=== PATIENT | female | born 1955 | race Caucasian/White ===

== ENCOUNTER 2024-04-08 08:34 | Outpatient (CLI) | payer MEDICARE | END 2024-04-08 23:59 | disposition critical access hospital (66) | LOC: EMS 08:34 | DX: E11.65 Type 2 diabetes mellitus with hyperglycemia (principal); Z79.4 Long term (current) use of insulin | CPT/HCPCS: A0425; A0427 ==

== ENCOUNTER 2024-04-08 08:52 | Emergency (ER) | payer MEDICARE ==
[2024-04-08 09:31] LABS: BASOPHILS # (AUTO) 0.1 10^3/uL (0.0-0.1); BASOPHILS % (AUTO) 0.5 %; EOSINOPHILS % (AUTO) 0.3 %; HCT - HEMATOCRIT 49.1 % (37.0-47.0); LYMPHOCYTES # (AUTO) 2.3 10^3/uL (1.5-3.5); LYMPHOCYTES % (AUTO) 15.5 %; MEAN CORPUSCULAR HEMOGLOBIN 33.8 pg (27.0-31.0); MEAN CORPUSCULAR HGB CONC 32.6 g/dL (32.0-36.0); MEAN CORPUSCULAR VOLUME 103.8 fL (81.0-99.0); MEAN PLATELET VOLUME 9.1 fL (7.9-10.8); MONOCYTES # (AUTO) 0.6 10^3/uL (0.0-1.0); MONOCYTES % (AUTO) 4.3 %; NEUTROPHILS # (AUTO) 11.9 10^3/uL (1.5-6.6); NEUTROPHILS % (AUTO) 79.1 %; PLT - PLATELET COUNT 290 10^3/uL (130-450); RED BLOOD COUNT 4.73 10^6/uL (4.20-5.40); RED CELL DISTRIBUTION WIDTH 11.6 % (12.0-15.0)
--- NOTE | 2024-04-08 09:41 | ED Physician Documentation ---
History of Present Illness - Stated complaint Stated Complaint: HIGH BLOOD SUGAR - Chief complaint Chief Complaint: General - History obtained from History obtained from: Patient, EMS - History of Present Illness Timing: Today - Additonal information Additional information: Blood sugar is extremely high patient has had a cough for the past 3 weeks nonproductive of sputum without fever. She is brought to the hospital by ambulance from home place with the chief complaint of elevated blood sugar. She has been given some fluid en-route to the hospital. She has a history of dementia and her insulin is being given by the facility she is living in. She is a poor historian. Review of Systems Constitutional: denies: Fever Eyes: denies: Decreased vision, Photophobia Ears: denies: Loss of hearing, Ear pain Nose: reports: Congestion Throat: denies: Sore throat Cardiac: denies: Chest pain / pressure, Palpitations Respiratory: reports: Dyspnea, Cough, Wheezing GI: denies: Abdominal Pain, Nausea, Vomiting, Diarrhea : reports: Frequency. denies: Dysuria Musculoskeletal: denies: Neck pain, Back pain, Extremity pain Neurologic: reports: Generalized weakness. denies: Focal weakness, Numbness PD PAST MEDICAL HISTORY - Past Medical History Past Medical History: Yes Cardiovascular: Hypertension, High cholesterol Respiratory: Asthma Neuro: Alzhiemer's Endocrine/Autoimmune: Other : Other HEENT: Other Psych: Depression, Bipolar disorder - Present Medications Home Medications: Ambulatory Orders Medication Instructions Recorded Confirmed Azithromycin [Zithromax] 250 mg PO DAILY #6 tablet 04/08/24 Benzonatate [Tessalon] 100 - 200 mg PO TID PRN #30 cap 04/08/24 - Allergies Allergies/Adverse Reactions: Allergies Allergy/AdvReac Type Severity Reaction Status Date / Time ciprofloxacin [From Cipro] Allergy Unknown Verified 04/08/24 09:09 clarithromycin [From Biaxin] Allergy Unknown Verified 04/08/24 09:09 lisinopril Allergy Unknown Verified 04/08/24 09:09 Sulfa (Sulfonamide Allergy Unknown Verified 04/08/24 09:08 Antibiotics) - Social History Does the pt smoke?: No Smoking Status: Never smoker Does the pt drink ETOH?: No Does the pt have substance abuse?: No - Immunizations Immunizations are current?: Yes - POLST Patient has POLST: No PD ED PE NORMAL - Vitals Vital signs reviewed: Yes (normal ) - General General: No acute distress, Well developed/nourished - HEENT HEENT: Atraumatic, PERRL, EOMI, Other (dry mucous membranes) - Neck Neck: Supple, no meningeal sign, No bony TTP - Cardiac Cardiac: RRR, No murmur - Respiratory Respiratory: No respiratory distress, Other (scattered wheezes diminished breath sounds in right base ) - Abdomen Abdomen: Soft, Non tender - Back Back: No CVA TTP, No spinal TTP - Derm Derm: Normal color, Warm and dry, No rash - Extremities Extremities: No deformity, No edema - 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, No motor deficit, No sensory deficit, Normal speech Eye Opening: Spontaneous Motor: Obeys Commands Verbal: Confused GCS Score: 14 - Psych Psych: Normal mood, Normal affect Results - Vitals Vitals: Vital Signs - 24 hr 04/08/24 04/08/24 08:59 11:34 Temperature 36.4 C L Heart Rate 66 66 Respiratory 20 20 Rate Blood Pressure 130/64 124/68 O2 Saturation 96 95 Oxygen O2 Source Room air - Labs Labs: Laboratory Tests 04/08/24 04/08/24 04/08/24 08:47 09:26 09:57 WBC 15.0 H RBC 4.73 Hgb 16.0 Hct 49.1 H MCV 103.8 H MCH 33.8 H MCHC 32.6 RDW 11.6 L Plt Count 290 MPV 9.1 Neut # (Auto) 11.9 H Lymph # (Auto) 2.3 [place] # (Auto) 0.6 Eos # (Auto) 0.0 Baso # (Auto) 0.1 Absolute Nucleated RBC 0.00 Nucleated RBC % 0.0 VBG pH VBG pCO2 VBG pO2 VBG HCO3 VBG Total CO2 VBG O2 Saturation VBG Base Excess Sodium 135 Potassium 4.1 Chloride 102 Carbon Dioxide 16 L Anion Gap 17.0 H BUN 12 Creatinine 0.8 Estimated GFR (MDRD) 72 L Glucose 412 H Calcium 9.3 Total Bilirubin 0.5 AST 9 L ALT 11 Alkaline Phosphatase 97 Total Protein 6.9 Albumin 4.1 Globulin 2.8 Albumin/Globulin Ratio 1.5 Lipase < 10 L Urine Color Urine Clarity Urine pH Ur Specific [place] Urine Protein Urine Glucose (UA) Urine Ketones Urine Occult Blood Urine Nitrite Urine Bilirubin Urine Urobilinogen Ur Leukocyte Esterase Ur Microscopic Review Urine Culture Comments Nasal Adenovirus (PCR) NOT DETECTED Nasal B. parapertussis DNA (PCR) NOT DETECTED Nasal Coronavir 229E PCR NOT DETECTED Nasal Coronavir HKU1 PCR NOT DETECTED Nasal Coronavir NL63 PCR NOT DETECTED Nasal Coronavir OC43 PCR NOT DETECTED Nasal Enterovir/Rhinovir PCR DETECTED A Nasal Influenza B PCR NOT DETECTED Nasal Influenza A PCR NOT DETECTED Nasal Parainfluen 1 PCR NOT DETECTED Nasal Parainfluen 2 PCR NOT DETECTED Nasal Parainfluen 3 PCR NOT DETECTED Nasal Parainfluen 4 PCR NOT DETECTED Nasal RSV (PCR) NOT DETECTED Nasal B.pertussis DNA PCR NOT DETECTED Nasal C.pneumoniae (PCR) NOT DETECTED [place] Human Metapneumo PCR NOT DETECTED Nasal M.pneumoniae (PCR) NOT DETECTED Nasal SARS-CoV-2 (PCR) NOT DETECTED Serum Ketones 04/08/24 04/08/24 04/08/24 10:36 10:36 12:35 WBC RBC Hgb Hct MCV MCH MCHC RDW Plt Count MPV Neut # (Auto) Lymph # (Auto) [place] # (Auto) Eos # (Auto) Baso # (Auto) Absolute Nucleated RBC Nucleated RBC % VBG pH 7.323 VBG pCO2 33.0 L VBG pO2 69.8 H VBG HCO3 16.7 L VBG Total CO2 17.7 L VBG O2 Saturation 94.0 H VBG Base Excess -8.0 L Sodium Potassium Chloride Carbon Dioxide Anion Gap BUN Creatinine Estimated GFR (MDRD) Glucose Calcium Total Bilirubin AST ALT Alkaline Phosphatase Total Protein Albumin Globulin Albumin/Globulin Ratio Lipase Urine Color YELLOW Urine Clarity CLEAR Urine pH 6.0 Ur Specific [place] 1.020 Urine Protein NEGATIVE Urine Glucose (UA) >=1000 H Urine Ketones >=80 H Urine Occult Blood TRACE-INTA Urine Nitrite NEGATIVE Urine Bilirubin NEGATIVE Urine Urobilinogen 0.2 (NORMAL) Ur Leukocyte Esterase NEGATIVE Ur Microscopic Review NOT INDICATED Urine Culture Comments NOT INDICATED Nasal Adenovirus (PCR) Nasal B. parapertussis DNA (PCR) Nasal Coronavir 229E PCR Nasal Coronavir HKU1 PCR Nasal Coronavir NL63 PCR Nasal Coronavir OC43 PCR Nasal Enterovir/Rhinovir PCR Nasal Influenza B PCR Nasal Influenza A PCR Nasal Parainfluen 1 PCR Nasal Parainfluen 2 PCR Nasal Parainfluen 3 PCR Nasal Parainfluen 4 PCR Nasal RSV (PCR) Nasal B.pertussis DNA PCR Nasal C.pneumoniae (PCR) Jeremy Human Metapneumo PCR Nasal M.pneumoniae (PCR) Nasal SARS-CoV-2 (PCR) Serum Ketones SMALL H - Rads (name of study) chest Relevant Findings:: Prelim report reviewed (Impression: No acute cardiopulmonary process.), EMP independent interpretation of test, See rad report Procedures - IVC sono (time) 0934 Bedside IVC sono: IVC measures (cm) (0.58), Profound dehydration (est 3 liter deficit) PD Medical Decision Making - ED course Complexity details: reviewed results, re-evaluated patient, considered diffe rential, d/w patient Reviewed Lab Results: We reviewed a complete blood count showing an elevated white blood cell count of 15,000 hemoglobin was normal at 16 hematocrit elevated at 49.1 platelets are normal at 290,000 the MCV is elevated at 103.8. These laboratory values have no comparisons and the elevation in hematocrit and upper level of normal hemoglobin are concerning for hemoconcentration a blood gas shows a venous pH of 7.323 chemistries show normal electrolytes normal kidney function glucose is markedly elevated at 412 liver function is normal lipase is normal urinalysis shows glucose and ketones with a specific gravity 1.020 enterovirus is detected in the nasal smear and there are small serum ketones. I interpret these laboratory values to indicate the patient has a significant volume deficit and minimal evidence of acidosis. ED course: Isatu Valdivia presented to the emergency department with markedly elevated blood sugar with a 3-week history of cough. She is treated in the emerged part with intravenous saline with improvement in her sugar she is given benzoate for cough suppression. She received a total of 2 L of saline with marked improvement. Glucose was 254 at discharge. She does have insulin at home. Departure - Departure Disposition: 01 Home, Self Care Clinical Impression: Blood glucose abnormal, Dehydration, Bronchitis Instructions: ED Hyperglycemia Diabetic, ED Dehydration Follow-Up: Donte Preston, CANDI, [employer] FORWARDER, [employer] PROFESSOR [Primary Care Provider] - Prescriptions: Benzonatate [Tessalon] 100 - 200 mg PO TID PRN #30 cap PRN Reason: Cough Azithromycin [Zithromax] 250 mg PO DAILY #6 tablet Comments: Isatu, today your blood sugar was markedly elevated and you were subsequently significantly dehydrated. You have had an illness ongoing for about 3 weeks with a persistent cough and there is no evidence of a pneumonia on your chest x- ray. At this point we will offer empiric antibiotic therapy for the bronchitis and we have provided a prescription for azithromycin as well as some cough suppressant in the form of benzoate. Continue your current diabetic regimen. Forms: PCP List Discharge Date/Time: 04/08/24 13:37
[2024-04-08] MEDS: SODIUM CHLORIDE 0.9% 1,000 ML IV STA ×2 (09:49→10:56)
[2024-04-08 10:16] LABS: ALBUMIN 4.1 g/dL (3.2-5.5); ALBUMIN/GLOBULIN RATIO 1.5 (1.0-2.2); ALKALINE PHOSPHATASE 97 IU/L (42-121); ALT ALANINE AMINOTRANSFERASE 11 IU/L (10-60); AST ASPARTATE AMINOTRANSFERASE 9 IU/L (10-42); BILIRUBIN,TOTAL 0.5 mg/dL (0.2-1.0); BUN - BLOOD UREA NITROGEN 12 mg/dL (6-20); CALCIUM 9.3 mg/dL (8.5-10.3); CARBON DIOXIDE - CO2 16 mmol/L (21-32); CHLORIDE 102 mmol/L (101-111); CREATININE 0.8 mg/dL (0.6-1.3); GFR - MDRD 72 (>89); GLUCOSE 412 mg/dL (74-104); LIPASE < 10 U/L (11-82); POTASSIUM 4.1 mmol/L (3.5-4.5); SODIUM 135 mmol/L (135-145); TOTAL PROTEIN 6.9 g/dL (6.4-8.9)
--- NOTE | 2024-04-08 10:33 | XRAY Report ---
PROCEDURE: Chest 1V INDICATIONS: persistent cough TECHNIQUE: One view of the chest was acquired. COMPARISON: None. FINDINGS: Surgical changes and devices: Pacemaker. Lungs and pleura: No pleural effusions or pneumothorax. Lungs are clear. Mediastinum: Mediastinal contours appear normal. Heart size is normal. Bones and chest wall: No suspicious bony lesions. Overlying soft tissues appear unremarkable. IMPRESSION: No acute cardiopulmonary process. Reviewed by: Nicho Sanchez MD on 04/08/2024 10:32 AM PDT Approved by: Nicho Sanchez MD on 04/08/2024 10:32 AM PDT Station ID: [id number]
[2024-04-08 10:45] LABS: VBG HCO3 16.7 mmol/L (23-28); VBG PH 7.323 (7.31-7.41); VBG PO2 69.8 mmHg (25-47); VBG TOTAL CO2 17.7 mmol/L (24-29)
[2024-04-08] MEDS: BENZONATATE 100 MG CAPSULE PO STA (10:52)
[2024-04-08] MEDS: INSULIN REGULAR, HUMAN 300 UNIT/3 ML PEN IVP STA (11:03)
[2024-04-08 11:40] VITALS: BP 124/68; O2SAT 95
[2024-04-08 12:01] LABS: B. PARAPERTUSSIS- RESP PCR PAN NOT DETECTED; B. PERTUSSIS- RESP PCR PANEL NOT DETECTED; C. PNEUMONIAE- RESP PCR PANEL NOT DETECTED; CORONAVIRUS 229E-RESP PCR NOT DETECTED; CORONAVIRUS HKU1-RESP PCR NOT DETECTED; CORONAVIRUS NL63-RESP PCR NOT DETECTED; CORONAVIRUS OC43-RESP PCR NOT DETECTED; HUMAN METAPNEUMOVIRUS NOT DETECTED; INFLUENZA A- RESP PCR PANEL NOT DETECTED; INFLUENZA B - RESP PCR PANEL NOT DETECTED; M. PNEUMONIAE- RESP PCR PANEL NOT DETECTED; PARAINFLUENZA VIRUS 1 NOT DETECTED; PARAINFLUENZA VIRUS 2 NOT DETECTED; PARAINFLUENZA VIRUS 3 NOT DETECTED; PARAINFLUENZA VIRUS 4 NOT DETECTED; RHINOVIRUS/ENTEROVIRUS DETECTED; RSV- RESP PCR PANEL NOT DETECTED; SARS-CoV-2 -RESP PCR PANEL NOT DETECTED
[2024-04-08 12:43] LABS: BILIRUBIN,URINE NEGATIVE (NEGATIVE); GLUCOSE, URINE (UA) >=1000 mg/dL (NEGATIVE); KETONES,URINE (UA) >=80 mg/dL (NEGATIVE); LEUKOCYTE ESTERASE, URINE NEGATIVE (NEGATIVE); NITRITE,URINE NEGATIVE (NEGATIVE); OCCULT BLOOD,URINE TRACE-INTA (NEGATIVE); PROTEIN,URINE NEGATIVE (NEGATIVE); UROBILINOGEN,URINE 0.2 (NORMAL) E.U./dL (NORMAL)
[2024-04-08 12:47] LABS: CLARITY,URINE CLEAR (CLEAR)
== END 2024-04-08 13:37 | disposition home or self-care (01) ==
LOC: ED 08:52
DX: R73.9 Hyperglycemia, unspecified (principal); J40 Bronchitis, not specified as acute or chronic; E86.0 Dehydration; I10 Essential (primary) hypertension; E78.00 Pure hypercholesterolemia, unspecified; G30.9 Alzheimer's disease, unspecified; F02.80 Dementia in other diseases classified elsewhere, unspecified severity, without behavioral disturbance, psychotic disturbance, mood disturbance, and anxiety
CPT/HCPCS: 36415; 71045; 80053; 81003; 82009; 82803; 83690; 85025; 87633; 96360; 96361; 99284; A9270; 81001; 87086

== ENCOUNTER 2024-04-08 13:40 | Outpatient (CLI) | payer MEDICARE | END 2024-04-08 23:59 | disposition home or self-care (01) | LOC: EMS 13:40 | PROVIDERS: ATTEND Emergency Medicine | DX: E11.65 Type 2 diabetes mellitus with hyperglycemia (principal); J40 Bronchitis, not specified as acute or chronic | CPT/HCPCS: A0425; A0428 ==

== ENCOUNTER 2024-04-09 06:48 | Outpatient (CLI) | payer MEDICARE, MEDICAID | END 2024-04-09 23:59 | disposition critical access hospital (66) | LOC: EMS 06:48 | DX: E11.65 Type 2 diabetes mellitus with hyperglycemia (principal); R11.0 Nausea; R53.81 Other malaise; Z79.4 Long term (current) use of insulin | CPT/HCPCS: A0425; A0429 ==

== ENCOUNTER 2024-04-09 07:05 | Inpatient (IN) | payer MEDICARE, MEDICAID ==
--- NOTE | 2024-04-09 08:19 | XRAY Report ---
PROCEDURE: Chest 1V INDICATIONS: cough for couple days, elevated sugar TECHNIQUE: One view of the chest was acquired. COMPARISON: 04/08/2024. FINDINGS: Surgical changes and devices: Left chest wall pacemaker leads are in the region of right atrium and right ventricle. Lungs and pleura: No pleural effusions or pneumothorax. Lungs are clear. Mediastinum: Mediastinal contours appear normal. Heart size is normal. Bones and chest wall: No suspicious bony lesions. Overlying soft tissues appear unremarkable. IMPRESSION: No acute cardiopulmonary process. Reviewed by: Aldo Chavez MD on 04/09/2024 8:17 AM PDT Approved by: Aldo Chavez MD on 04/09/2024 8:17 AM PDT Station ID: [id number]
[2024-04-09] MEDS: SODIUM CHLORIDE 0.9% 1,000 ML IV STA ×2 (08:21→09:54)
[2024-04-09 08:26] LABS: BASOPHILS # (AUTO) 0.1 10^3/uL (0.0-0.1); BASOPHILS % (AUTO) 0.4 %; EOSINOPHILS % (AUTO) 0.1 %; HCT - HEMATOCRIT 48.2 % (37.0-47.0); HGB - HEMOGLOBIN 15.4 g/dL (12.0-16.0); LYMPHOCYTES % (AUTO) 14.8 %; MEAN CORPUSCULAR HEMOGLOBIN 33.7 pg (27.0-31.0); MEAN CORPUSCULAR VOLUME 105.5 fL (81.0-99.0); MEAN PLATELET VOLUME 9.2 fL (7.9-10.8); MONOCYTES # (AUTO) 0.7 10^3/uL (0.0-1.0); MONOCYTES % (AUTO) 3.7 %; NEUTROPHILS # (AUTO) 16.1 10^3/uL (1.5-6.6); NEUTROPHILS % (AUTO) 80.2 %; PLT - PLATELET COUNT 326 10^3/uL (130-450); RED BLOOD COUNT 4.57 10^6/uL (4.20-5.40); RED CELL DISTRIBUTION WIDTH 11.7 % (12.0-15.0); WHITE BLOOD COUNT 20.1 x10^3/uL (4.8-10.8)
[2024-04-09 08:34] LABS: MAGNESIUM 1.7 mg/dL (1.7-2.3)
[2024-04-09 08:35] LABS: BILIRUBIN,TOTAL 0.4 mg/dL (0.2-1.0); CALCIUM 9.5 mg/dL (8.5-10.3); CHLORIDE 97 mmol/L (101-111); POTASSIUM 4.7 mmol/L (3.5-4.5); SODIUM 131 mmol/L (135-145)
[2024-04-09 08:40] LABS: BILIRUBIN,URINE NEGATIVE (NEGATIVE); GLUCOSE, URINE (UA) >=1000 mg/dL (NEGATIVE); KETONES,URINE (UA) >=80 mg/dL (NEGATIVE); LEUKOCYTE ESTERASE, URINE NEGATIVE (NEGATIVE); NITRITE,URINE NEGATIVE (NEGATIVE); OCCULT BLOOD,URINE SMALL (NEGATIVE); PH,URINE 5.5 PH (5.0-7.5); PROTEIN,URINE NEGATIVE (NEGATIVE); UROBILINOGEN,URINE 0.2 (NORMAL) E.U./dL (NORMAL)
[2024-04-09 08:40] LABS: ETOH - ETHANOL < 10.0 mg/dL
[2024-04-09 08:41] LABS: ALBUMIN/GLOBULIN RATIO 1.3 (1.0-2.2); ALKALINE PHOSPHATASE 96 IU/L (42-121); ALT ALANINE AMINOTRANSFERASE 13 IU/L (10-60); AST ASPARTATE AMINOTRANSFERASE 14 IU/L (10-42); BUN - BLOOD UREA NITROGEN 13 mg/dL (6-20); CARBON DIOXIDE - CO2 7 mmol/L (21-32); CREATININE 0.9 mg/dL (0.6-1.3); GFR - MDRD 63 (>89); GLUCOSE 539 mg/dL (74-104); LIPASE < 10 U/L (11-82); TOTAL PROTEIN 7.1 g/dL (6.4-8.9)
[2024-04-09 08:46] LABS: VBG PCO2 28.9 mmHg (41-51)
[2024-04-09 08:47] LABS: VBG BASE EXCESS -21.1 mmol/L (-2 - +2); VBG OXYGEN SATURATION 77.7 % (60-80); VBG PO2 48.9 mmHg (25-47); VBG TOTAL CO2 8.9 mmol/L (24-29)
[2024-04-09 08:48] LABS: VBG PH 7.06 (7.31-7.41)
[2024-04-09 09:04] LABS: SLIDE REVIEW? Indicated
--- NOTE | 2024-04-09 09:05 | ED Physician Documentation ---
PD HPI NVD - Stated complaint Stated Complaint: HIGH BLOOD SUGAR - Chief complaint Chief Complaint: General - History obtained from History obtained from: Patient, EMS, Caregiver - History of Present Illness Timing - onset: Yesterday (noted elevated blood sugar 2 days. Mild cough, URI symptoms. NV today. some abd cramping.) Timing - duration: Days (2) Timing - details: Gradual onset, Still present Associated symptoms: Abdominal pain (cramping upper abdomen.), Loss of appetite. No: Fever, Hematemesis, Near syncope / syncope Contributing factors: Diabetes. No: Sick contact, Bad food Similar symptoms before: Has not had sx before Recently seen: Not recently seen Review of Systems Constitutional: denies: Fever, Chills Throat: denies: Sore throat Cardiac: denies: Chest pain / pressure Respiratory: denies: Cough GI: reports: Abdominal Pain, Nausea, Vomiting. denies: Constipation Neurologic: reports: Generalized weakness. denies: Near syncope PD PAST MEDICAL HISTORY - Past Medical History Past Medical History: Yes Cardiovascular: Hypertension, High cholesterol Respiratory: Asthma Neuro: Alzhiemer's (early onset) Endocrine/Autoimmune: Other : Other HEENT: Other Psych: Depression, Bipolar disorder - Past Surgical History Past Surgical History: No - Present Medications Home Medications: Ambulatory Orders Medication Instructions Recorded Confirmed Azithromycin [Zithromax] 250 mg PO DAILY #6 tablet 04/08/24 04/09/24 Benzonatate [Tessalon] 100 - 200 mg PO TID PRN #30 cap 04/08/24 04/09/24 Aspirin [[place]] 81 mg PO DAILY 04/09/24 04/09/24 Buspirone HCl 10 mg PO DAILY 04/09/24 04/09/24 DULoxetine [Cymbalta] 60 mg PO DAILY 04/09/24 04/09/24 Donepezil [Aricept] 5 mg PO DAILY 04/09/24 04/09/24 Insulin Glargine [Lantus Solostar] See Rx Instructions .ROUTE .COMPLEX 04/09/24 04/09/24 Lactulose 20 gm PO DAILY PM 04/09/24 04/09/24 Levetiracetam [Keppra] 500 mg PO BID 04/09/24 04/09/24 Melatonin/Pyridoxine [Melatonin 5 1 each PO DAILY 04/09/24 04/09/24 mg Tablet] Metoprolol Succinate [Toprol Xl] 50 mg PO DAILY 04/09/24 04/09/24 Mirabegron [Myrbetriq] 50 mg PO DAILY 04/09/24 04/09/24 Mv-Min/Folic/K1/Lycopen/Lutein 1 tab PO DAILY 04/09/24 04/09/24 [Centrum Silver Men Tablet] Pravastatin [Pravachol] 20 mg PO DAILY 04/09/24 04/09/24 Primidone 150 mg PO DAILY 04/09/24 04/09/24 Sacubitril/Valsartan [Entresto 24 1 each PO DAILY 04/09/24 04/09/24 mg-26 mg Tablet] Spironolactone [Aldactone] 25 mg PO DAILY 04/09/24 04/09/24 Venlafaxine ER [Effexor ER] 150 mg PO DAILY 04/09/24 04/09/24 oxyBUTYnin chloride [Oxybutynin 5 mg PO BID 04/09/24 04/09/24 Chloride] - Allergies Allergies/Adverse Reactions: Allergies Allergy/AdvReac Type Severity Reaction Status Date / Time ciprofloxacin [From Cipro] Allergy Unknown Verified 04/09/24 07:19 clarithromycin [From Biaxin] Allergy Unknown Verified 04/09/24 07:19 lisinopril Allergy Unknown Verified 04/09/24 07:19 Sulfa (Sulfonamide Allergy Unknown Verified 04/09/24 07:19 Antibiotics) - Social History Does the pt smoke?: No Smoking Status: Never smoker Does the pt drink ETOH?: No Does the pt have substance abuse?: No - Immunizations Immunizations are current?: Yes - POLST Patient has POLST: No PD ED PE NORMAL - Vitals Vital signs reviewed: Yes - General General: Well developed/nourished, Other (appears ill with holding emesis bag. ). No: Alert and oriented X 3 (person and place but not time, c/w her dementia. ) - Neck Neck: Supple, no meningeal sign, No adenopathy - Cardiac Cardiac: RRR, No murmur - Respiratory Respiratory: Clear bilaterally - Abdomen Abdomen: Normal bowel sounds, Soft, Non distended, Other (tender epigastric area with local guarding but no rebound nor percussion tenderness. Not particularly tender RUQ. ) - Derm Derm: Normal color, Warm and dry Results - Vitals Vitals: Vital Signs - 24 hr 04/09/24 04/09/24 04/09/24 07:13 08:33 10:00 Temperature 35.7 C L Heart Rate 80 80 90 Respiratory 20 20 Rate Blood Pressure 147/59 H 136/75 H O2 Saturation 98 98 100 Oxygen O2 Source Room air - Labs Labs: Laboratory Tests 04/09/24 04/09/24 04/09/24 08:15 08:15 08:15 WBC 20.1 H RBC 4.57 Hgb 15.4 Hct 48.2 H MCV 105.5 H MCH 33.7 H MCHC 32.0 RDW 11.7 L Plt Count 326 MPV 9.2 Neut # (Auto) 16.1 H Lymph # (Auto) 3.0 [place] # (Auto) 0.7 Eos # (Auto) 0.0 Baso # (Auto) 0.1 Absolute Nucleated RBC 0.00 Nucleated RBC % 0.0 Manual Slide Review Indicated RBC Morph Micro Appear 1+ ANISOCYTOSIS VBG pH 7.060 L* VBG pCO2 28.9 L VBG pO2 48.9 H VBG HCO3 8.0 L VBG Total CO2 8.9 L VBG O2 Saturation 77.7 VBG Base Excess -21.1 L Sodium 131 L Potassium 4.7 H Chloride 97 L Carbon Dioxide 7 L* Anion Gap 27.0 H BUN 13 Creatinine 0.9 Estimated GFR (MDRD) 63 L Glucose 539 H* POC Whole Bld Glucose Estimat Average Glucose Hemoglobin A1c % Calcium 9.5 Magnesium 1.7 Total Bilirubin 0.4 AST 14 ALT 13 Alkaline Phosphatase 96 Total Protein 7.1 Albumin 4.0 Globulin 3.1 Albumin/Globulin Ratio 1.3 Lipase < 10 L Urine Color Urine Clarity Urine pH Ur Specific [place] Urine Protein Urine Glucose (UA) Urine Ketones Urine Occult Blood Urine Nitrite Urine Bilirubin Urine Urobilinogen Ur Leukocyte Esterase Urine RBC Urine WBC Ur Squamous Epith Cells Urine Bacteria Ur Microscopic Review Urine Culture Comments Nasal Adenovirus (PCR) Nasal B. parapertussis DNA (PCR) Nasal Coronavir 229E PCR Nasal Coronavir HKU1 PCR Nasal Coronavir NL63 PCR Nasal Coronavir OC43 PCR Nasal Enterovir/Rhinovir PCR Nasal Influenza B PCR Nasal Influenza A PCR Nasal Parainfluen 1 PCR Nasal Parainfluen 2 PCR Nasal Parainfluen 3 PCR Nasal Parainfluen 4 PCR Nasal RSV (PCR) Nasal B.pertussis DNA PCR Nasal C.pneumoniae (PCR) [place] Human Metapneumo PCR Nasal M.pneumoniae (PCR) Nasal SARS-CoV-2 (PCR) Ethyl Alcohol < 10.0 Serum Ketones MODERATE H 04/09/24 04/09/24 04/09/24 08:20 08:20 08:45 WBC RBC Hgb Hct MCV MCH MCHC RDW Plt Count MPV Neut # (Auto) Lymph # (Auto) [place] # (Auto) Eos # (Auto) Baso # (Auto) Absolute Nucleated RBC Nucleated RBC % Manual Slide Review RBC Morph Micro Appear VBG pH VBG pCO2 VBG pO2 VBG HCO3 VBG Total CO2 VBG O2 Saturation VBG Base Excess Sodium Potassium Chloride Carbon Dioxide Anion Gap BUN Creatinine Estimated GFR (MDRD) Glucose POC Whole Bld Glucose Estimat Average Glucose 246 H Hemoglobin A1c % 10.2 H Calcium Magnesium Total Bilirubin AST ALT Alkaline Phosphatase Total Protein Albumin Globulin Albumin/Globulin Ratio Lipase Urine Color YELLOW Urine Clarity CLEAR Urine pH 5.5 Ur Specific [place] 1.025 Urine Protein NEGATIVE Urine Glucose (UA) >=1000 H Urine Ketones >=80 H Urine Occult Blood SMALL H Urine Nitrite NEGATIVE Urine Bilirubin NEGATIVE Urine Urobilinogen 0.2 (NORMAL) Ur Leukocyte Esterase NEGATIVE Urine RBC 0-5 Urine WBC 0-3 Ur Squamous Epith Cells RARE Squamous Urine Bacteria Rare Ur Microscopic Review INDICATED Urine Culture Comments NOT INDICATED Nasal Adenovirus (PCR) NOT DETECTED Nasal B. parapertussis DNA (PCR) NOT DETECTED Nasal Coronavir 229E PCR NOT DETECTED Nasal Coronavir HKU1 PCR NOT DETECTED Nasal Coronavir NL63 PCR NOT DETECTED Nasal Coronavir OC43 PCR NOT DETECTED Nasal Enterovir/Rhinovir PCR DETECTED A Nasal Influenza B PCR NOT DETECTED Nasal Influenza A PCR NOT DETECTED Nasal Parainfluen 1 PCR NOT DETECTED Nasal Parainfluen 2 PCR NOT DETECTED Nasal Parainfluen 3 PCR NOT DETECTED Nasal Parainfluen 4 PCR NOT DETECTED Nasal RSV (PCR) NOT DETECTED Nasal B.pertussis DNA PCR NOT DETECTED Nasal C.pneumoniae (PCR) NOT DETECTED [place] Human Metapneumo PCR NOT DETECTED Nasal M.pneumoniae (PCR) NOT DETECTED Nasal SARS-CoV-2 (PCR) NOT DETECTED Ethyl Alcohol Serum Ketones 04/09/24 04/09/24 10:17 11:29 WBC RBC Hgb Hct MCV MCH MCHC RDW Plt Count MPV Neut # (Auto) Lymph # (Auto) [place] # (Auto) Eos # (Auto) Baso # (Auto) Absolute Nucleated RBC Nucleated RBC % Manual Slide Review RBC Morph Micro Appear VBG pH VBG pCO2 VBG pO2 VBG HCO3 VBG Total CO2 VBG O2 Saturation VBG Base Excess Sodium Potassium Chloride Carbon Dioxide Anion Gap BUN Creatinine Estimated GFR (MDRD) Glucose POC Whole Bld Glucose 508 H* 432 H Estimat Average Glucose Hemoglobin A1c % Calcium Magnesium Total Bilirubin AST ALT Alkaline Phosphatase Total Protein Albumin Globulin Albumin/Globulin Ratio Lipase Urine Color Urine Clarity Urine pH Ur Specific [place] Urine Protein Urine Glucose (UA) Urine Ketones Urine Occult Blood Urine Nitrite Urine Bilirubin Urine Urobilinogen Ur Leukocyte Esterase Urine RBC Urine WBC Ur Squamous Epith Cells Urine Bacteria Ur Microscopic Review Urine Culture Comments Nasal Adenovirus (PCR) Nasal B. parapertussis DNA (PCR) Nasal Coronavir 229E PCR Nasal Coronavir HKU1 PCR Nasal Coronavir NL63 PCR Nasal Coronavir OC43 PCR Nasal Enterovir/Rhinovir PCR Nasal Influenza B PCR Nasal Influenza A PCR Nasal Parainfluen 1 PCR Nasal Parainfluen 2 PCR Nasal Parainfluen 3 PCR Nasal Parainfluen 4 PCR Nasal RSV (PCR) Nasal B.pertussis DNA PCR Nasal C.pneumoniae (PCR) [place] Human Metapneumo PCR Nasal M.pneumoniae (PCR) Nasal SARS-CoV-2 (PCR) Ethyl Alcohol Serum Ketones - Rads (name of study) chest xray Relevant Findings:: Prelim report reviewed, EMP independent interpretation of test (no acute process) abd/pelvic CT Relevant Findings:: Prelim report reviewed (thickening mild of gastric and duodenal wall c/w gastritis/duodenitits. Thickening of lower colon wall c/w colitis. ), EMP independent interpretation of test PD Medical Decision Making - ED course Complexity details: considered differential (elevated blood sugars for 2 days with now nauser and vomtiing. Blood sugar elevated to 500s at care facility. vomiting today with mild diarrhea as well. Upper abd cramping pain this morning. ), d/w patient ED course: patient with 2 days of elevated blood sugars and now nausea, weakness, vomiting. Some smell of frutiness on breath. No noted alcohol. Presume now in DKA. However, still want to investigate for the tipping cause/ trigger illness or such. No noted change in diet. No alcohol use, no apparent flu/virus. Can check for UTI, get CXR. Departure - Departure Disposition: 66 [facility] DC/Xfer Clinical Impression: DKA (diabetic ketoacidosis) Qualifiers: Diabetes mellitus type: type 2 Diabetes mellitus complication detail: without coma Qualified Code(s): E11.10 - Type 2 diabetes mellitus with ketoacidosis without coma Condition: Stable Record reviewed to determine appropriate education?: Yes Discharge Date/Time: 04/09/24 13:04
[2024-04-09 09:06] LABS: CLARITY,URINE CLEAR (CLEAR)
[2024-04-09 09:10] LABS: BACTERIA,URINE Rare /HPF (None Seen); RBC,URINE 0-5 /HPF (0-5); SQUAMOUS EPITHELIAL CELL,UR RARE Squamous (<= Few); WBC,URINE 0-3 /HPF (0-5)
[2024-04-09 09:12] LABS: RBC MORPHOLOGY (MULTIPLE) 1+ ANISOCYTOSIS (NORMAL)
[2024-04-09] MEDS: INSULIN REGULAR IN 0.9 % NS 100 UNIT/100 ML BAG IV STA (09:17)
[2024-04-09 09:29] LABS: B. PARAPERTUSSIS- RESP PCR PAN NOT DETECTED; B. PERTUSSIS- RESP PCR PANEL NOT DETECTED; C. PNEUMONIAE- RESP PCR PANEL NOT DETECTED; CORONAVIRUS 229E-RESP PCR NOT DETECTED; CORONAVIRUS HKU1-RESP PCR NOT DETECTED; CORONAVIRUS NL63-RESP PCR NOT DETECTED; CORONAVIRUS OC43-RESP PCR NOT DETECTED; HUMAN METAPNEUMOVIRUS NOT DETECTED; INFLUENZA A- RESP PCR PANEL NOT DETECTED; INFLUENZA B - RESP PCR PANEL NOT DETECTED; M. PNEUMONIAE- RESP PCR PANEL NOT DETECTED; PARAINFLUENZA VIRUS 1 NOT DETECTED; PARAINFLUENZA VIRUS 2 NOT DETECTED; PARAINFLUENZA VIRUS 3 NOT DETECTED; PARAINFLUENZA VIRUS 4 NOT DETECTED; RHINOVIRUS/ENTEROVIRUS DETECTED; RSV- RESP PCR PANEL NOT DETECTED; SARS-CoV-2 -RESP PCR PANEL NOT DETECTED
[2024-04-09 09:47] LABS: KETONES, SERUM (ACETEST) MODERATE (NEGATIVE)
[2024-04-09] MEDS ORDERED: iohexoL-300 100 ML VIAL ONE (10:06)
--- NOTE | 2024-04-09 10:56 | CT Report ---
PROCEDURE: Abdomen/Pelvis W INDICATIONS: upper to right abd pain, with elevated blood sugar CONTRAST: 100ml omni 300 TECHNIQUE: After the administration of intravenous contrast, a CT scan of the abdomen and pelvis was performed. Images were recorded and evaluated at appropriate window settings. Reformats: coronal and sagittal. F or radiation dose reduction, the following was used: automated exposure control, adjustment of mA and /or kV according to patient size. COMPARISON: None. FINDINGS: Image quality: Diagnostic. Lower chest: Bilateral lung bases are clear. Pacemaker leads are seen in right atrium and right ventr icle. No pericardial effusion.. Liver: No solid mass. Gallbladder: No radiopaque stones or wall thickening. Biliary tree: No intrahepatic or extrahepatic dilation, accounting for age. Spleen: No splenomegaly. Pancreas: No pancreatic ductal dilation. Adrenals: No adrenal nodule. Kidneys and ureters: No hydronephrosis. No renal cystic lesion which requires follow up. No solid mas s. Stomach, bowel and peritoneum: Fluid distended stomach lumen with distal gastric wall thickening and diffuse duodenal wall thickening. There is no evidence of bowel obstruction. No other area of small b owel wall thickening. There is suggestion of diffuse colonic wall thickening and narrowing of the lum en. No significant pericolonic fat stranding. Finding is most notably involving ascending colon in ri ght lower quadrant. Normal appendix is seen in right lower quadrant. No abscess collection. No free f luid of free air. Lymph nodes: No central or retroperitoneal adenopathy. Vessels: No infrarenal aortic aneurysm. Patent portal vein. PELVIS Reproductive organs: Unremarkable. Bladder: No abnormal wall thickening, accounting for underdistention. Pelvic lymph nodes: No pelvic adenopathy by size criteria. Bones: No aggressive osseous abnormality. Grade 1 anterolisthesis of L4 on L5 is seen. Other: No significant ventral or inguinal hernia. Postsurgical changes are noted in anterior abdomina l/pelvic wall. Pain management device is noted in right lower back with a lead seen terminating in ri ght presacral soft tissue. IMPRESSION: 1. Fluid distended stomach and duodenum with gastric wall thickening and duodenal wall thickening con cerning for gastritis and duodenitis. 2. Diffuse colonic wall thickening particularly involving ascending colon concerning for colitis. 3. Normal appendix. No bowel obstruction. No abscess collection. No free fluid of free air. 4. Postsurgical changes in lower abdomen/pelvic wall suggests clinical correlation. Reviewed by: Aldo Chavez MD on 04/09/2024 10:55 AM PDT Approved by: Aldo Chavez MD on 04/09/2024 10:55 AM PDT Station ID: [id number]
[2024-04-09 11:16] LABS: ESTIMATED AVERAGE GLUCOSE 246 mg/dL (70-100); HEMOGLOBIN A1c% 10.2 % (4.27-6.07)
[2024-04-09] MEDS: FAMOTIDINE 20 MG/2 ML VIAL IVP STA (12:02)
[2024-04-09] MEDS ORDERED: ONDANSETRON ODT 4 MG TABLET TL PRN (12:18)
[2024-04-09] MEDS ORDERED: ONDANSETRON 4 MG/2 ML VIAL IVP PRN (12:18)
[2024-04-09] MEDS: SODIUM BICARBONATE ABBOJECT 50 MEQ/50 ML SYRINGE IVP STA (13:14)
[2024-04-09] MEDS: SODIUM CHLORIDE 0.9% 1,000 ML IV SCH (13:14)
[2024-04-09 13:23] LABS: VBG HCO3 9.2 mmol/L (23-28); VBG OXYGEN SATURATION 65.9 % (60-80); VBG PCO2 32.5 mmHg (41-51); VBG PO2 35.1 mmHg (25-47); VBG TOTAL CO2 10.2 mmol/L (24-29)
[2024-04-09 13:26] LABS: VBG PH 7.069 (7.31-7.41)
--- NOTE | 2024-04-09 13:28 | HISTORY & PHYSICAL EXAMINATION ---
Chief Complaint - Chief Complaint Chief Complaint: Elevated blood glucose History of Present Illness - History of Present Illness HPI Comment/Other: Patient is a 68-year-old female with past medical history of type 2 diabetes, hypertension, hyperlipidemia, Alzheimer's who presented to the ED via EMS with elevated blood sugars over the past 2 days. Upon presentation, her labs were deranged and she was noted to be in metabolic acidosis with a high anion gap with high blood sugars. Patient had ketones in her urine. She is given a diagnosis of DKA and started on IV insulin as well as IV fluids. Patient did have an elevated white blood cell count and a CT abdomen/pelvis was performed which revealed evidence of gastric wall thickening and duodenal wall thickening concerning for gastritis and duodenitis. Patient also diffuse colonic wall thickening involving the ascending colon concerning for colitis. Patient was admitted to the ICU for further management of her DKA. She reported to me that she is insulin-dependent at baseline but does not know her A1c or how much insulin she was on. She denies any history of cardiac or pulmonary dise ase. Patient was not endorsing any abdominal pain or diarrhea. History - Past Medical History Cardiovascular: reports: Hypertension, High cholesterol Respiratory: reports: Asthma Neuro: reports: Alzhiemer's Endocrine/Autoimmune: reports: Other : reports: Other HEENT: reports: Other Psych: reports: Depression, Bipolar disorder MRSA Hx?: No - POLST Patient has POLST: No Meds/Allgy - Home Medications Home Medications: Ambulatory Orders Medication Instructions Recorded Confirmed Azithromycin [Zithromax] 250 mg PO DAILY #6 tablet 04/08/24 04/09/24 Benzonatate [Tessalon] 100 - 200 mg PO TID PRN #30 cap 04/08/24 04/09/24 Aspirin [Vazalore] 81 mg PO DAILY 04/09/24 04/09/24 Buspirone HCl 10 mg PO DAILY 04/09/24 04/09/24 DULoxetine [Cymbalta] 60 mg PO DAILY 04/09/24 04/09/24 Donepezil [Aricept] 5 mg PO DAILY 04/09/24 04/09/24 Insulin Glargine [Lantus Solostar] See Rx Instructions .ROUTE .COMPLEX 04/09/24 04/09/24 Lactulose 20 gm PO DAILY PM 04/09/24 04/09/24 Levetiracetam [Keppra] 500 mg PO BID 04/09/24 04/09/24 Melatonin/Pyridoxine [Melatonin 5 1 each PO DAILY 04/09/24 04/09/24 mg Tablet] Metoprolol Succinate [Toprol Xl] 50 mg PO DAILY 04/09/24 04/09/24 Mirabegron [Myrbetriq] 50 mg PO DAILY 04/09/24 04/09/24 Mv-Min/Folic/K1/Lycopen/Lutein 1 tab PO DAILY 04/09/24 04/09/24 [Centrum Silver Men Tablet] Pravastatin [Pravachol] 20 mg PO DAILY 04/09/24 04/09/24 Primidone 150 mg PO DAILY 04/09/24 04/09/24 Sacubitril/Valsartan [Entresto 24 1 each PO DAILY 04/09/24 04/09/24 mg-26 mg Tablet] Spironolactone [Aldactone] 25 mg PO DAILY 04/09/24 04/09/24 Venlafaxine ER [Effexor ER] 150 mg PO DAILY 04/09/24 04/09/24 oxyBUTYnin chloride [Oxybutynin 5 mg PO BID 04/09/24 04/09/24 Chloride] - Allergies Allergies/Adverse Reactions: Allergies Allergy/AdvReac Type Severity Reaction Status Date / Time ciprofloxacin [From Cipro] Allergy Unknown Verified 04/09/24 07:19 clarithromycin [From Biaxin] Allergy Unknown Verified 04/09/24 07:19 lisinopril Allergy Unknown Verified 04/09/24 07:19 Sulfa (Sulfonamide Allergy Unknown Verified 04/09/24 07:19 Antibiotics) Review of Systems - Constitutional Constitutional: denies: Fatigue, Fever, Chills, Malaise - Cardiovascular Cariovascular: denies: Irregular heart rate, Palpitations, Chest pain, Edema - Gastrointestinal Gastrointestinal: denies: Abdominal pain, Abdominal distention, Constipation, Diarrhea - All Other Systems All Other Systems: reports: Reviewed and negative Exam - Vital Signs Vital Signs: Vital Signs x48h Temp Pulse Resp BP Pulse Ox 04/09/24 10:00 90 100 04/09/24 08:33 80 20 136/75 H 98 04/09/24 07:13 35.7 C L 80 20 147/59 H 98 - Physical Exam General Appearance: positive: No acute distress, Alert Respiratory: positive: Chest non-tender, No respiratory distress, Breath sounds nml Cardiovascular: positive: Regular rate & rhythm, No murmur, No gallop Abdomen: positive: Non-tender, No organomegaly, Nml bowel sounds, No distention Extremities: positive: Non-tender, Full ROM, Nml appearance Neurologic/Psychiatric: positive: Oriented x3, Mood/affect nml Conclusion/Plan - Problem List (1) DKA (diabetic ketoacidosis) Conclusion/Plan: --Continue to treat with IV insulin via DKA protocol and aggressive IV fluid hydration. --Will keep patient on the insulin infusion until AG closed x2. --A1c is pending. --Careful monitoring in the ICU. Qualifiers: Diabetes mellitus type: type 2 Diabetes mellitus complication detail: without coma Qualified Code(s): E11.10 - Type 2 diabetes mellitus with ketoacidosis without coma (2) Colitis Conclusion/Plan: --CT showing evidence of gastritis, duodenitis and gastritis. Will start her on IV zosyn as well as IV protonix. --Blood cultures and stool studies pending. (3) Hypertension Conclusion/Plan: --Appears to be on my goal directed heart failure medications. Unclear what her heart function is. --Resume her Entresto, spironolactone, metoprolol succinate. - Lab Results Fish Bones: 04/09/24 08:15 04/09/24 08:15
[2024-04-09] MEDS: PIPERACILLIN/TAZOBACTAM 3.375 GM in SODIUM CHLORIDE 0.9% MINIBAG 100 ML IV SCH (13:45)
[2024-04-09 14:12] LABS: MAGNESIUM 1.7 mg/dL (1.7-2.3)
[2024-04-09 14:23] LABS: CALCIUM 9.1 mg/dL (8.5-10.3); CREATININE 0.9 mg/dL (0.6-1.3); POTASSIUM 4.2 mmol/L (3.5-4.5)
[2024-04-09] MEDS: DEXTROSE 5%-0.9% NACL 1,000 ML IV SCH (15:44)
[2024-04-09] MEDS ORDERED: DEXTROSE 5%-0.9% NACL 1,000 ML IV SCH (16:00)
[2024-04-09 17:16] LABS: CALCIUM 8.9 mg/dL (8.5-10.3); CREATININE 0.8 mg/dL (0.6-1.3); POTASSIUM 3.8 mmol/L (3.5-4.5)
[2024-04-09] MEDS: iohexoL-300 100 ML VIAL IVP ONE (17:51)
[2024-04-09] MEDS: MAGNESIUM SULFATE 2 GRAM 2 GM/50 ML BAG IV ONE (17:52)
[2024-04-09] MEDS: SODIUM CHLORIDE FLUSH 0.9% 10 ML SYRINGE IVP SCH (17:54)
[2024-04-09] MEDS ORDERED: INSULIN REGULAR IN 0.9 % NS 100 UNIT/100 ML BAG IV ONE (19:29)
[2024-04-09] MEDS: POTASSIUM CHLOR 10 MEQ/100 ML 10 MEQ/100 ML BAG IV SCH (19:45)
[2024-04-09] MEDS: FAMOTIDINE 20 MG/2 ML VIAL IVP SCH (20:47)
[2024-04-09] MEDS: ACETAMINOPHEN 325 MG TABLET PO PRN (20:47)
[2024-04-09] MEDS: levETIRAcetam 250 MG TABLET PO SCH (20:47)
[2024-04-09] MEDS: HYDROcod/ACETAM 5/325 MG TABLET PO PRN (21:31)
[2024-04-09 23:50] LABS: CALCIUM 8.3 mg/dL (8.5-10.3); CREATININE 0.7 mg/dL (0.6-1.3); POTASSIUM 3.7 mmol/L (3.5-4.5)
[2024-04-10] MEDS: POTASSIUM CHLOR 10 MEQ/100 ML 10 MEQ/100 ML BAG IV SCH (00:40)
[2024-04-10] MEDS: MAGNESIUM SULFATE 2 GRAM 2 GM/50 ML BAG IV ONE (00:44)
[2024-04-10 05:49] LABS: CALCIUM, IONIZED 1.1 mmol/L (1.15-1.33); VBG PH 7.323 (7.31-7.41)
[2024-04-10 05:52] LABS: BASOPHILS # (AUTO) 0.1 10^3/uL (0.0-0.1); BASOPHILS % (AUTO) 0.3 %; EOSINOPHILS % (AUTO) 0.2 %; HCT - HEMATOCRIT 39.9 % (37.0-47.0); HGB - HEMOGLOBIN 13.2 g/dL (12.0-16.0); LYMPHOCYTES # (AUTO) 3.4 10^3/uL (1.5-3.5); LYMPHOCYTES % (AUTO) 19.4 %; MEAN CORPUSCULAR HEMOGLOBIN 33.6 pg (27.0-31.0); MEAN CORPUSCULAR HGB CONC 33.1 g/dL (32.0-36.0); MEAN CORPUSCULAR VOLUME 101.5 fL (81.0-99.0); MEAN PLATELET VOLUME 9.1 fL (7.9-10.8); MONOCYTES % (AUTO) 5.7 %; NEUTROPHILS % (AUTO) 73.9 %; NRBC ABSOLUTE COUNT (AUTO) 0.02 x10^3/uL; NUCLEATED RED BLOOD CELLS AUTO 0.1 /100WBC; PLT - PLATELET COUNT 232 10^3/uL (130-450); RED BLOOD COUNT 3.93 10^6/uL (4.20-5.40); RED CELL DISTRIBUTION WIDTH 11.9 % (12.0-15.0); WHITE BLOOD COUNT 17.6 x10^3/uL (4.8-10.8)
[2024-04-10 06:05] LABS: CALCIUM 7.9 mg/dL (8.5-10.3); CREATININE 0.6 mg/dL (0.6-1.3); PHOSPHORUS 1.4 mg/dL (2.5-5.0); POTASSIUM 3.3 mmol/L (3.5-4.5)
[2024-04-10] MEDS: POTASSIUM CHLOR 10 MEQ/100 ML 10 MEQ/100 ML BAG IV ONE ×2 (06:22→07:59)
[2024-04-10] MEDS: CALCIUM CARBONATE CHEW 500 MG TABLET PO SCH (06:33)
[2024-04-10] MEDS ORDERED: POTASSIUM CHLOR 10 MEQ/100 ML 10 MEQ/100 ML BAG IV SCH (08:00)
[2024-04-10] MEDS: INSULIN LISPRO 300 UNIT/3 ML PEN SUBQ SCH ×3 (08:09→17:10)
[2024-04-10] MEDS: POTASSIUM PHOSPHATE 21 MMOL in SODIUM CHLORIDE 0.9% 250 ML IV ONE (08:58)
[2024-04-10] MEDS ORDERED: VALSARTAN PO SCH (09:00)
[2024-04-10] MEDS: INSULIN GLARGINE-YFGN 300 UNIT/3 ML PEN SUBQ SCH (09:00)
[2024-04-10] MEDS ORDERED: MIRABEGRON 50 MG PO SCH (09:00)
[2024-04-10] MEDS ORDERED: MELATONIN PO SCH (09:00)
[2024-04-10] MEDS ORDERED: SACUBITRIL PO SCH (09:00)
[2024-04-10] MEDS ORDERED: PYRIDOXINE PO SCH (09:00)
[2024-04-10] MEDS: ENOXAPARIN 40 MG/0.4 ML SYRINGE SUBQ SCH (09:09)
[2024-04-10] MEDS: VENLAFAXINE ER 75 MG CAPSULE PO SCH (09:25)
[2024-04-10] MEDS: ASPIRIN EC 81 MG TABLET PO SCH (09:25)
[2024-04-10] MEDS: SPIRONOLACTONE 25 MG TABLET PO SCH (09:26)
[2024-04-10] MEDS: busPIRone 5 MG TABLET PO SCH (09:27)
[2024-04-10] MEDS: PRAVASTATIN 10 MG TABLET PO SCH (09:29)
[2024-04-10] MEDS: LOSARTAN 50 MG TABLET PO SCH (09:29)
[2024-04-10] MEDS: SOLIFENACIN SUCCINATE 5 MG TABLET PO SCH (09:30)
[2024-04-10] MEDS: DULoxetine 30 MG CAPSULE PO SCH (09:31)
[2024-04-10] MEDS: MULTIVITAMIN W/MINERALS TABLET PO SCH (09:31)
[2024-04-10] MEDS: METOPROLOL SUCCINATE 50 MG TABLET PO SCH (09:32)
[2024-04-10] MEDS: DONEPEZIL 5 MG TABLET PO SCH (09:34)
[2024-04-10] MEDS: PRIMIDONE 50 MG TABLET PO SCH (09:34)
--- NOTE | 2024-04-10 11:29 | PROVIDER PROGRESS NOTE ---
Assessment/Plan - Problem List (1) DKA (diabetic ketoacidosis) Qualifiers: Diabetes mellitus type: type 2 Diabetes mellitus complication detail: without coma Qualified Code(s): E11.10 - Type 2 diabetes mellitus with ketoacidosis without coma Assessment/Plan: (1) DKA (diabetic ketoacidosis) Conclusion/Plan: --AG closed x2. Placed on basal bolus insulin. --Carb controlled diet ordered. (2) Colitis Conclusion/Plan: --CT showing evidence of gastritis, duodenitis and gastritis. Will start her on IV zosyn as well as IV protonix. --Blood cultures and stool studies pending. (3) Hypertension Conclusion/Plan: --Appears to be on my goal directed heart failure medications. Unclear what her heart function is. --Resume her Entresto, spironolactone, metoprolol succinate. (5) Pacemaker Assessment/Plan: --Unlcear cardiac history but she does have PPM. Monitored on telemetry. (6) Seizure disorder Assessment/Plan: --Continue Keppra. (7) Rhinovirus infection Assessment/Plan: --Positive for rhinoenterovirus. Continue supportive care for now. - Current Meds Current Meds: Current Medications Generic Name Dose Route Start Last Admin Trade Name Freq PRN Reason Stop Dose Admin Acetaminophen 650 mg 04/09/24 12:18 04/09/24 20:47 Acetaminophen 325 Mg Tablet PO 650 mg Q4HR PRN Administration Pain 1 to 4, or Fever Hydrocodone Bitart/Acetaminophen 1 tab 04/09/24 12:18 04/09/24 21:31 Hydrocod/Acetam 5/325 Mg Tablet PO 1 tab Q4HR PRN Administration Pain 5 to 7 Aspirin 81 mg 04/10/24 09:00 04/10/24 09:25 Aspirin Ec 81 Mg Tablet PO 81 mg DAILY BANDAR Administration Buspirone HCl 10 mg 04/10/24 09:00 04/10/24 09:27 Buspirone 5 Mg Tablet PO 10 mg DAILY BANDAR Administration Donepezil HCl 5 mg 04/10/24 09:00 04/10/24 09:34 Donepezil 5 Mg Tablet PO 5 mg DAILY BANDAR Administration Duloxetine HCl 60 mg 04/10/24 09:00 04/10/24 09:31 Duloxetine 30 Mg Capsule PO 60 mg DAILY BANDAR Administration Enoxaparin Sodium 40 mg 04/10/24 09:00 04/10/24 09:09 Enoxaparin 40 Mg/0.4 Ml Syringe SUBQ 40 mg DAILY BANDAR Administration Famotidine 20 mg 04/09/24 21:00 04/10/24 09:05 Famotidine 20 Mg/2 Ml Vial IVP 20 mg BID BANDAR Administration Potassium Phosphate 21 mmol/ 257 mls @ 64 mls/hr 04/10/24 09:00 04/10/24 08:58 Sodium Chloride IV 04/10/24 13:00 64 mls/hr ONCE ONE Administration Protocol Insulin Glargine-yfgn 15 unit 04/10/24 09:00 04/10/24 09:00 Insulin Glargine-Yfgn 300 Unit/3 Ml Pen SUBQ 15 unit DAILY BANDAR Administration Insulin Human Lispro 1 - 9 unit 04/10/24 08:00 04/10/24 08:09 Insulin Lispro 300 Unit/3 Ml Pen SUBQ 1 unit 0800,1200,1700,2100 BANDAR Administration Protocol Levetiracetam 500 mg 04/09/24 21:00 04/10/24 09:27 Levetiracetam 250 Mg Tablet PO 500 mg BID BANDAR Administration Losartan Potassium 50 mg 04/10/24 09:00 04/10/24 09:29 Losartan 50 Mg Tablet PO 50 mg DAILY BANDAR Administration Metoprolol Succinate 50 mg 04/10/24 09:00 04/10/24 09:32 Metoprolol Succinate 50 Mg Tablet PO 50 mg DAILY BANDAR Administration Multivitamins/Minerals 1 tab 04/10/24 08:00 04/10/24 09:31 Multivitamin W/Minerals Tablet PO 1 tab DAILYWM BANDAR Administration Pravastatin Sodium 20 mg 04/10/24 09:00 04/10/24 09:29 Pravastatin 10 Mg Tablet PO 20 mg DAILY BANDAR Administration Primidone 150 mg 04/10/24 09:00 04/10/24 09:34 Primidone 50 Mg Tablet PO 150 mg DAILY BANDAR Administration Sodium Chloride 10 ml 04/09/24 17:00 04/10/24 09:09 Sodium Chloride Flush 0.9% 10 Ml Syringe IVP 10 ml 0100,0900,1700 BANDAR Administration Solifenacin 10 mg 04/10/24 09:00 04/10/24 09:30 Solifenacin Succinate 5 Mg Tablet PO 10 mg DAILY BANDAR Administration Spironolactone 25 mg 04/10/24 09:00 04/10/24 09:26 Spironolactone 25 Mg Tablet PO 25 mg DAILY BANDAR Administration Venlafaxine HCl 150 mg 04/10/24 09:00 04/10/24 09:25 Venlafaxine Er 75 Mg Capsule PO 150 mg DAILY BANDAR Administration - Lab Result Fish Bone Diagrams: 04/10/24 05:35 04/10/24 05:35 - Additional Planning My Orders: My Active Orders 04/09/24 12:18 Activity Orders (ICU) [RC] Q2HR Daily Weight [RC] 0600 IO [RC] Q1HR Initiate Bowel Care Protocol [RC] QSHIFT Initiate Line Care Protocol [RC] .protocol Initiate Personal Care Protoco [RC] .protocol Initiate Progressive Mobility Protocol [RC] 0800,1999 Acetaminophen [Tylenol] 650 mg PO Q4HR PRN HYDROcod/ACETAM 5/325 [[place] 5/325] 1 tab PO Q4HR PRN Ondansetron Inj [Zofran Inj] 4 mg IVP Q6HR PRN Ondansetron Odt [Zofran Odt] 4 mg TL Q6HR PRN Sodium Chloride Flush 0.9% [Normal Saline Flush 0.9%] 10 ml IVP PRN PRN Code Status [OTHERS] Routine Condition of Patient [OTHERS] Routine DVT Prophylaxis [OTHERS] Routine 04/09/24 12:24 Initiate DKA RN Protocol [RC] .protocol Initiate ICU Electrolyte Prot. [RC] .protocol 04/09/24 13:12 Blood Culture [CULTURE, BLOOD #1] [] Stat Blood Culture [CULTURE, BLOOD #2] [] Stat 04/09/24 17:00 Sodium Chloride Flush 0.9% [Normal Saline Flush 0.9%] 10 ml IVP 0100,0900,1700 04/09/24 21:00 Famotidine [Pepcid] 20 mg IVP BID levETIRAcetam [Keppra] 500 mg PO BID 04/10/24 07:07 Blood Glucose Checks - Eating [RC] 0800,1200,1700,2100 Initiate Hypoglycemia Protocol [RC] .protocol 04/10/24 08:00 Insulin Lispro [Humalog Kwikpen U-100] 1 - 9 unit SUBQ 0800,1200,1700,2100 Multivitamin W/Minerals [Theragran M] 1 tab PO DAILYWM 04/10/24 09:00 Aspirin EC [Ecotrin] 81 mg PO DAILY DULoxetine [Cymbalta] 60 mg PO DAILY Donepezil [Aricept] 5 mg PO DAILY Enoxaparin [Lovenox] 40 mg SUBQ DAILY Insulin Glargine-Yfgn [Semglee] 15 unit SUBQ DAILY Losartan [Cozaar] 50 mg PO DAILY Metoprolol Succinate [Toprol Xl] 50 mg PO DAILY Potassium Phosphate 21 mmol Sodium Chloride 0.9% [Normal Saline 0.9%] 250 ml IV ONCE Pravastatin [Pravachol] 20 mg PO DAILY Primidone [Mysoline] 150 mg PO DAILY Solifenacin Succinate [Vesicare] 10 mg PO DAILY Spironolactone [Aldactone] 25 mg PO DAILY Venlafaxine ER [Effexor ER] 150 mg PO DAILY busPIRone [Buspar] 10 mg PO DAILY 04/10/24 11:00 BMP - BASIC METABOLIC PANEL [CHEM] Q4H 04/10/24 Lunch Carb-controlled Diet [DIET] 04/10/24 14:00 Piperacillin/Tazobactam [Zosyn] 3.375 gm Sodium Chloride 0.9% Minibag [Normal Saline 0.9% Minibag] 100 ml IV Q8H Subjective - Subjective Patient Reports: Feeling Better, Resting Comfortably, No Complaints Objective Vital Signs: Vital Signs - 24 hr 04/09/24 04/09/24 04/09/24 13:00 13:15 13:30 Temperature 36.8 C Heart Rate [ 81 83 92 Monitoring electrodes] Respiratory 20 20 20 Rate Blood Pressure 104/72 127/64 93/74 [Left Brachial artery] O2 Saturation 100 100 100 04/09/24 04/09/24 04/09/24 13:45 14:00 14:30 Temperature Heart Rate [ 86 82 84 Monitoring electrodes] Respiratory 18 18 22 Rate Blood Pressure 122/64 141/58 H 145/56 H [Left Brachial artery] O2 Saturation 99 99 97 04/09/24 04/09/24 04/09/24 15:00 16:00 17:00 Temperature 37.0 C Heart Rate [ 87 93 99 Monitoring electrodes] Respiratory 20 22 20 Rate Blood Pressure 150/55 H 149/58 H 132/56 H [Left Brachial artery] O2 Saturation 97 98 04/09/24 04/09/24 04/09/24 18:00 19:00 20:00 Temperature 38.0 C H Heart Rate [ 102 H 95 102 H Monitoring electrodes] Respiratory 23 18 20 Rate Blood Pressure 101/52 L 127/57 L 163/59 H [Left Brachial artery] O2 Saturation 96 100 97 04/09/24 04/09/24 04/09/24 21:00 22:00 23:00 Temperature 37.2 C Heart Rate [ 91 87 Monitoring electrodes] Respiratory 21 19 18 Rate Blood Pressure 145/50 H 139/51 H 138/62 H [Left Brachial artery] O2 Saturation 90 L 97 04/10/24 04/10/24 04/10/24 00:00 01:00 02:00 Temperature Heart Rate [ 86 71 83 Monitoring electrodes] Respiratory 18 16 Rate Blood Pressure 154/53 H 131/49 H 104/46 L [Left Brachial artery] O2 Saturation 98 96 96 04/10/24 04/10/24 04/10/24 03:00 04:00 05:00 Temperature 37.7 C Heart Rate [ 75 84 76 Monitoring electrodes] Respiratory 16 16 15 Rate Blood Pressure 111/51 L 143/86 H 127/56 L [Left Brachial artery] O2 Saturation 94 95 95 04/10/24 04/10/24 04/10/24 06:00 07:00 07:38 Temperature 36.7 C Heart Rate [ 69 73 92 Monitoring electrodes] Respiratory 13 15 17 Rate Blood Pressure 141/60 H 130/92 H 130/92 H [Left Brachial artery] O2 Saturation 94 92 94 04/10/24 04/10/24 04/10/24 09:00 09:49 10:57 Temperature 37.2 C Heart Rate [ 77 79 66 Monitoring electrodes] Respiratory 14 15 16 Rate Blood Pressure 143/54 H 149/61 H 112/79 [Left Brachial artery] O2 Saturation 94 94 94 Oxygen O2 Source Room air I&O (Last 24 Hrs): Intake and Output Totals x24h 04/08/24 04/09/24 04/10/24 23:59 23:59 23:59 Intake Total 2539.533 2551.400 Output Total 1100 300 Balance 5755.455 2951.400 General: Alert, Oriented x3, Cooperative, No acute distress Neuro: Alert, CN 2-12 Grossly Intact, Oriented Times 3 Cardiovascular: Regular rate, Normal S1, Normal S2, No murmurs Respiratory: Chest non-tender, No respiratory distress, Breath sounds nml Abdomen: Normal bowel sounds, Soft, No tenderness, No hepatospenomegaly, No masses - Results Results: Laboratory Results WBC 17.6 x10^3/uL (4.8-10.8) H 04/10/24 05:35 RBC 3.93 10^6/uL (4.20-5.40) L 04/10/24 05:35 Hgb 13.2 g/dL (12.0-16.0) 04/10/24 05:35 Hct 39.9 % (37.0-47.0) 04/10/24 05:35 MCV 101.5 fL (81.0-99.0) H 04/10/24 05:35 MCH 33.6 pg (27.0-31.0) H 04/10/24 05:35 MCHC 33.1 g/dL (32.0-36.0) 04/10/24 05:35 RDW 11.9 % (12.0-15.0) L 04/10/24 05:35 Plt Count 232 10^3/uL (130-450) 04/10/24 05:35 MPV 9.1 fL (7.9-10.8) 04/10/24 05:35 Neut # (Auto) 13.0 10^3/uL (1.5-6.6) H 04/10/24 05:35 Lymph # (Auto) 3.4 10^3/uL (1.5-3.5) 04/10/24 05:35 [place] # (Auto) 1.0 10^3/uL (0.0-1.0) 04/10/24 05:35 Eos # (Auto) 0.0 10^3/uL (0.0-0.7) 04/10/24 05:35 Baso # (Auto) 0.1 10^3/uL (0.0-0.1) 04/10/24 05:35 Absolute Nucleated RBC 0.02 x10^3/uL 04/10/24 05:35 Nucleated RBC % 0.1 /100WBC 04/10/24 05:35 Manual Slide Review Indicated 04/09/24 08:15 RBC Morph Micro Appear 1+ ANISOCYTOSIS (NORMAL) 04/09/24 08:15 VBG pH 7.323 (7.31-7.41) 04/10/24 05:35 VBG pCO2 32.5 mmHg (41-51) L 04/09/24 13:12 VBG pO2 35.1 mmHg (25-47) 04/09/24 13:12 VBG HCO3 9.2 mmol/L (23-28) L 04/09/24 13:12 VBG Total CO2 10.2 mmol/L (24-29) L 04/09/24 13:12 VBG O2 Saturation 65.9 % (60-80) 04/09/24 13:12 VBG Base Excess -20.0 mmol/L (-2 - +2) L 04/09/24 13:12 Ionized Calcium 1.10 mmol/L (1.15-1.33) L 04/10/24 05:35 Sodium 139 mmol/L (135-145) 04/10/24 05:35 Potassium 3.3 mmol/L (3.5-4.5) L 04/10/24 05:35 Chloride 113 mmol/L (101-111) H 04/10/24 05:35 Carbon Dioxide 19 mmol/L (21-32) L 04/10/24 05:35 Anion Gap 7.0 (6-13) 04/10/24 05:35 BUN 6 mg/dL (6-20) 04/10/24 05:35 Creatinine 0.6 mg/dL (0.6-1.3) 04/10/24 05:35 Estimated GFR (MDRD) 100 (>89) 04/10/24 05:35 Glucose 177 mg/dL (74-104) H 04/10/24 05:35 POC Whole Bld Glucose 166 mg/dL (70 - 100) H 04/10/24 06:05 Estimat Average Glucose 246 mg/dL (70-100) H 04/09/24 08:45 Hemoglobin A1c % 10.2 % (4.27-6.07) H 04/09/24 08:45 Lactic Acid 2.4 mmol/L (0.5-2.2) H 04/09/24 15:25 Calcium 7.9 mg/dL (8.5-10.3) L 04/10/24 05:35 Phosphorus 1.4 mg/dL (2.5-5.0) L 04/10/24 05:35 Magnesium 1.9 mg/dL (1.7-2.3) 04/10/24 05:35 Total Bilirubin 0.4 mg/dL (0.2-1.0) 04/09/24 08:15 AST 14 IU/L (10-42) 04/09/24 08:15 ALT 13 IU/L (10-60) 04/09/24 08:15 Alkaline Phosphatase 96 IU/L (42-121) 04/09/24 08:15 Total Protein 7.1 g/dL (6.4-8.9) 04/09/24 08:15 Albumin 4.0 g/dL (3.2-5.5) 04/09/24 08:15 Globulin 3.1 g/dL (2.1-4.2) 04/09/24 08:15 Albumin/Globulin Ratio 1.3 (1.0-2.2) 04/09/24 08:15 Lipase < 10 U/L (11-82) L 04/09/24 08:15 Urine Color YELLOW 04/09/24 08:20 Urine Clarity CLEAR (CLEAR) 04/09/24 08:20 Urine pH 5.5 PH (5.0-7.5) 04/09/24 08:20 Ur Specific [place] 1.025 (1.002-1.030) 04/09/24 08:20 Urine Protein NEGATIVE mg/dL (NEGATIVE) 04/09/24 08:20 Urine Glucose (UA) >=1000 mg/dL (NEGATIVE) H 04/09/24 08:20 Urine Ketones >=80 mg/dL (NEGATIVE) H 04/09/24 08:20 Urine Occult Blood SMALL (NEGATIVE) H 04/09/24 08:20 Urine Nitrite NEGATIVE (NEGATIVE) 04/09/24 08:20 Urine Bilirubin NEGATIVE (NEGATIVE) 04/09/24 08:20 Urine Urobilinogen 0.2 (NORMAL) E.U./dL (NORMAL) 04/09/24 08:20 Ur Leukocyte Esterase NEGATIVE (NEGATIVE) 04/09/24 08:20 Urine RBC 0-5 /HPF (0-5) 04/09/24 08:20 Urine WBC 0-3 /HPF (0-5) 04/09/24 08:20 Ur Squamous Epith Cells RARE Squamous (<= Few) 04/09/24 08:20 Urine Bacteria Rare /HPF (None Seen) 04/09/24 08:20 Ur Microscopic Review INDICATED 04/09/24 08:20 Urine Culture Comments NOT INDICATED 04/09/24 08:20 Nasal Adenovirus (PCR) NOT DETECTED 04/09/24 08:20 Nasal B. parapertussis DNA (PCR) NOT DETECTED 04/09/24 08:20 Nasal Coronavir 229E PCR NOT DETECTED 04/09/24 08:20 Nasal Coronavir HKU1 PCR NOT DETECTED 04/09/24 08:20 Nasal Coronavir NL63 PCR NOT DETECTED 04/09/24 08:20 Nasal Coronavir OC43 PCR NOT DETECTED 04/09/24 08:20 Nasal Enterovir/Rhinovir PCR DETECTED A 04/09/24 08:20 Nasal Influenza B PCR NOT DETECTED 04/09/24 08:20 Nasal Influenza A PCR NOT DETECTED 04/09/24 08:20 Nasal Parainfluen 1 PCR NOT DETECTED 04/09/24 08:20 Nasal Parainfluen 2 PCR NOT DETECTED 04/09/24 08:20 Nasal Parainfluen 3 PCR NOT DETECTED 04/09/24 08:20 Nasal Parainfluen 4 PCR NOT DETECTED 04/09/24 08:20 Nasal RSV (PCR) NOT DETECTED 04/09/24 08:20 Nasal Screen MRSA (PCR) NEGATIVE (NEGATIVE) 04/09/24 13:05 Nasal B.pertussis DNA PCR NOT DETECTED 04/09/24 08:20 Nasal C.pneumoniae (PCR) NOT DETECTED 04/09/24 08:20 Jeremy Human Metapneumo PCR NOT DETECTED 04/09/24 08:20 Nasal M.pneumoniae (PCR) NOT DETECTED 04/09/24 08:20 Nasal SARS-CoV-2 (PCR) NOT DETECTED 04/09/24 08:20 Ethyl Alcohol < 10.0 mg/dL 04/09/24 08:15 Serum Ketones MODERATE (NEGATIVE) H 04/09/24 08:15
--- NOTE | 2024-04-10 13:11 | PHARMACY PROGRESS NOTE ---
- Best Possible Medication History Admit Date and Time: 04/09/24 1218 Processed by: Pharmacy Medication History completed: Yes Patient Interview: Pt unable to participate Secondary Source(s): Written medication list, Pharmacy records As the person ultimately responsible for medication therapy, providers are able to order a medication from an existing home medication list in [facility] via the "Reconcile Routine" prior to Confirmation of that medication by manager product support. Such practice is discouraged except when the physician, in their clinical judgment, deems that a medical need exists for a medication without regard to previous use.
[2024-04-10] MEDS: PIPERACILLIN/TAZOBACTAM 3.375 GM in SODIUM CHLORIDE 0.9% MINIBAG 100 ML IV SCH (14:37)
[2024-04-10 15:34] LABS: CALCIUM 8.2 mg/dL (8.5-10.3); CREATININE 0.6 mg/dL (0.6-1.3); POTASSIUM 4.2 mmol/L (3.5-4.5)
[2024-04-10] MEDS: NICOTINE 7 MG PATCH TOP SCH (18:10)
[2024-04-10] MEDS: SODIUM CHLORIDE FLUSH 0.9% 10 ML SYRINGE IVP PRN (21:00)
[2024-04-11 06:33] LABS: CALCIUM, IONIZED 1.09 mmol/L (1.15-1.33); VBG PH 7.442 (7.31-7.41)
[2024-04-11 06:34] LABS: MAGNESIUM 1.5 mg/dL (1.7-2.3); POTASSIUM 3.7 mmol/L (3.5-4.5)
[2024-04-11 06:40] LABS: PHOSPHORUS 2.1 mg/dL (2.5-5.0)
[2024-04-11 07:55] LABS: CALCIUM 8.2 mg/dL (8.5-10.3); CREATININE 0.5 mg/dL (0.6-1.3); POTASSIUM 3.6 mmol/L (3.5-4.5)
[2024-04-11] MEDS: INSULIN GLARGINE-YFGN 300 UNIT/3 ML PEN SUBQ SCH (08:06)
[2024-04-11] MEDS: CALCIUM CARBONATE CHEW 500 MG TABLET PO SCH (08:09)
[2024-04-11] MEDS: MAGNESIUM OXIDE 400 MG TABLET PO ONE (08:10)
[2024-04-11] MEDS: NEUTRA-PHOS 250 MG TABLET PO SCH (08:11)
[2024-04-11] MEDS: POTASSIUM CHLORIDE 20 MEQ TABLET PO ONE (08:24)
[2024-04-11] MEDS ORDERED: NICOTINE 7 MG PATCH TOP SCH (09:00)
[2024-04-11] MEDS ORDERED: INSULIN GLARGINE-YFGN 300 UNIT/3 ML PEN SUBQ SCH (09:00)
[2024-04-11] MEDS: ZINC OXIDE 20% OINT 30 GM TUBE TOP PRN (09:51)
--- NOTE | 2024-04-11 10:28 | Discharge Plan ---
"Discharge Plan for SNF / [facility]IANA - Discharge Plan And Transition Orders Problem Reviewed?: Yes Disposition: 03 SNF DC/Xfer Condition: Good Allergies and Adverse Reactions: Allergies Allergy/AdvReac Type Severity Reaction Status Date / Time ciprofloxacin [From Cipro] Allergy Unknown Verified 04/09/24 07:19 clarithromycin [From Biaxin] Allergy Unknown Verified 04/09/24 07:19 lisinopril Allergy Unknown Verified 04/09/24 07:19 Sulfa (Sulfonamide Allergy Unknown Verified 04/09/24 07:19 Antibiotics) - SNF / [facility] Transition Orders Admit to (Facility): [facility] Medicare Certification Statement: I certify that Post Hospital residential care is medically necessary on a continuing basis for any of the conditions for which she/he is receiving care during hospitalization. Notify PCP of admission and forward orders to primary provider for signature. Weight on admission and: Weekly Call PCP immediately if weight increases by: 5 kg Other Notification Orders: Call PCP immediately if patient develops dyspnea, chest pain/tightness or edema. House Bowel Program: Yes Additional Bowel Program Orders: If no BM after 2 days, nurse may give M.O.M. 30ml PO PRN and/or ducolax Supp 1 MA and/or KRISTAN 250mg P.O., and/or senna 1-2 tabs PO. On day 3 nurse may give repeat above order until residents constipation is resolved. Annual Influenza Vaccine (between May 29 and December 26): Yes Two-step PPD per [facility] [phone] or approved exception documents: Yes Oxygen Orders: Maintain oxygen greater than 90%. Medication Orders: PLEASE REFER TO THE DISCHARGE MEDICATION LIST. Insulin Orders?: Yes - Medications New Prescriptions: Amox/Clav 875/125 [Augmentin 875/125 Tab] 1 tablet PO Q12H 5 Days #10 tablet - Diet Type: No added sugar Texture: Regular Liquids: Thin May have monthly special meal: Yes - Therapies | Activity Activity: Activity as Tolerated Follow Up: Follow up with PCP in 3-5 days. Insulin Orders - [facility] Basal | Correction | Custom Orders: Diagnosis: Diabetes Initiate hypo and hyperglycemia protocols for BG <70 and BG >375. May check BG PRN for signs/symptoms of dysglycemia. Frequency of BG checks: [AC/Meal/HS] Basal Insulin: [X] Lantus 100 units / ml inject subq as follows: [Lantus 40 units SubQ daily] [] Other: [] Correction Insulin: - Select the type of insulin below [Choose: Novolog/Humalog]100 units /ml insulin inject subq per orders indicate below [] LOW DOSE [] MODERATE DOSE [] MODERATE/HIGH DOSE [X] HIGH DOSE GB UNITS GB UNITS GB UNITS GB UNITS 61-140 0 UNITS 61-140 0 UNITS 61-140 0 UNITS 61-140 0 UNITS 141-175 1 UNITS 141-175 1 UNITS 141-175 2 UNITS 141-175 3 UNITS 176-225 2 UNITS 176-225 3 UNITS 176-225 4 UNITS 176-225 5 UNITS 226-275 3 UNITS 226-275 5 UNITS 226-275 6 UNITS 226-275 7 UNITS 276-325 4 UNITS 276-325 7 UNITS 276-325 8 UNITS 276-325 9 UNITS 326-375 5 UNITS 326-375 9 UNITS 326-375 10 UNITS 326-375 11 UNITS >375 CONTACT MD >375 CONTACT MD >375 CONTACT MD >375 CONTACT MD Custom Dosing: [Choose: Novolog/Humalog] 100 units/ml Insulin inject subq as follows: GB Units 61-140 [] Units 141-175 [] Units 176-225 [] Units 226-275 [] Units 276-325 []Units 326-375 [] Units >375 Contact MD"
--- NOTE | 2024-04-11 10:36 | DISCHARGE SUMMARY ---
Discharge Summary Admit Date: 04/09/24 Discharge Date: 04/11/24 Discharging Provider: Easton Mendez Code Status: Attempt Resuscitation Condition at Discharge: Good Discharge Disposition: 03 SNF DC/Xfer - HPI History of Present Illness: Patient is a 68-year-old female with past medical history of type 2 diabetes, hypertension, hyperlipidemia, Alzheimer's who presented to the ED via EMS with elevated blood sugars over the past 2 days. Upon presentation, her labs were deranged and she was noted to be in metabolic acidosis with a high anion gap with high blood sugars. Patient had ketones in her urine. She is given a diagnosis of DKA and started on IV insulin as well as IV fluids. Patient did have an elevated white blood cell count and a CT abdomen/pelvis was performed which revealed evidence of gastric wall thickening and duodenal wall thickening concerning for gastritis and duodenitis. Patient also diffuse colonic wall thickening involving the ascending colon concerning for colitis. Patient was admitted to the ICU for further management of her DKA. She reported to me that she is insulin-dependent at baseline but does not know her A1c or how much insulin she was on. She denies any history of cardiac or pulmonary disease. Patient was not endorsing any abdominal pain or diarrhea. - HOSPITAL COURSE Hospital Course: Patient is a 68-year-old female who presented to the ED and what appeared to be DKA/HHS. She was admitted to the ICU and started on IV fluid resuscitation as well as IV insulin due to an anion gap, urine ketones, metabolic acidosis, and elevated blood glucose levels. She was maintained on IV insulin until her gap is closed x 2 and eventually transition to her home Lantus of 40 units daily as well as sliding scale insulin. Patient was able to tolerate a diet and her condition improved significantly. Her metabolic acidosis resolved. A CT abdomen/pelvis was performed which revealed evidence of colitis. She also tested positive for rhino enterovirus. She was treated with IV Zosyn while inp atient eventually transition to oral Augmentin on day of discharge. She was eventually discharged back to walking home in good condition. She will resume her home insulin regimen. Her A1c was 10.2 in the hospital. I recommend that she follow-up with her PCP and possibly be referred to endocrinology for uncontrolled type 2 diabetes. - ALLERGIES Allergies/Adverse Reactions: Allergies Allergy/AdvReac Type Severity Reaction Status Date / Time ciprofloxacin [From Cipro] Allergy Unknown Verified 04/09/24 07:19 clarithromycin [From Biaxin] Allergy Unknown Verified 04/09/24 07:19 lisinopril Allergy Unknown Verified 04/09/24 07:19 Sulfa (Sulfonamide Allergy Unknown Verified 04/09/24 07:19 Antibiotics) - MEDICATIONS Home Medications: Ambulatory Orders Medication Instructions Recorded Confirmed Aspirin [[place]az[place]] 81 mg PO DAILY 04/09/24 04/09/24 Buspirone HCl 10 mg PO DAILY 04/09/24 04/09/24 DULoxetine [Cymbalta] 60 mg PO DAILY 04/09/24 04/09/24 Donepezil [Aricept] 5 mg PO DAILY 04/09/24 04/09/24 Insulin Glargine [Lantus Solostar] 40 unit SUBQ DAILY 04/09/24 04/10/24 Lactulose 20 gm PO BID 04/09/24 04/10/24 Levetiracetam [Keppra] 500 mg PO BID 04/09/24 04/09/24 Metoprolol Succinate [Toprol Xl] 50 mg PO DAILY 04/09/24 04/09/24 Mirabegron [Myrbetriq] 50 mg PO DAILY 04/09/24 04/09/24 Pravastatin [Pravachol] 20 mg PO DAILY 04/09/24 04/09/24 Primidone 150 mg PO DAILY 04/09/24 04/10/24 Sacubitril/Valsartan [Entresto 24 1 each PO DAILY 04/09/24 04/09/24 mg-26 mg Tablet] Spironolactone [Aldactone] 25 mg PO DAILY 04/09/24 04/09/24 Venlafaxine ER [Effexor ER] 150 mg PO DAILY 04/09/24 04/10/24 oxyBUTYnin chloride [Oxybutynin 5 mg PO BID 04/09/24 04/09/24 Chloride] Acetaminophen [Tylenol] 2 tab PO Q4HR 04/10/24 04/10/24 Calcium Carbonate [Tums (Calcium 2 tab ORAL DAILY 04/10/24 04/10/24 Carbonate 500mg)] Fluticasone Propionate 2 sprays HERMINIA DAILY 04/10/24 04/10/24 Insulin Lispro [Humalog] 0 units SUBQ 04/10/24 Amox/Clav 875/125 [Augmentin 1 tablet PO Q12H 5 Days #10 tablet 04/11/24 875/125 Tab] - PHYSICAL EXAM AT DISCHARGE General Appearance: positive: No acute distress, Alert Respiratory: positive: Chest non-tender, No respiratory distress Cardiovascular: positive: Regular rate & rhythm, No murmur, No gallop Abdomen: positive: Non-tender, No organomegaly, Nml bowel sounds Neurologic/Psychiatric: positive: Oriented x3, CN's nml (2-12) - LABS Result Diagrams: 04/10/24 05:35 04/11/24 07:28 - FOLLOW UP Follow Up: Follow up with PCP in 3-5 days. Recommend referral to Endocrinology. - TIME SPENT Time Spent in Discharge (Minutes): 30
[2024-04-11 15:07] VITALS: BP 139/61; O2SAT 97
[2024-04-11] MEDS ORDERED: FAMOTIDINE 20 MG TABLET PO SCH (21:00)
== END 2024-04-11 15:02 | DRG 639 ==
LOC: EDUNIT# → ED 07:05 → ICU 12:18
PROVIDERS: ADMIT Family Medicine; ATTEND Family Medicine
DX: E11.10 Type 2 diabetes mellitus with ketoacidosis without coma (principal); R19.7 Diarrhea, unspecified; K29.70 Gastritis, unspecified, without bleeding; K29.80 Duodenitis without bleeding; K52.9 Noninfective gastroenteritis and colitis, unspecified; B34.1 Enterovirus infection, unspecified; I10 Essential (primary) hypertension; E78.5 Hyperlipidemia, unspecified; G30.9 Alzheimer's disease, unspecified; F02.80 Dementia in other diseases classified elsewhere, unspecified severity, without behavioral disturbance, psychotic disturbance, mood disturbance, and anxiety; F31.9 Bipolar disorder, unspecified; Z95.0 Presence of cardiac pacemaker; G40.909 Epilepsy, unspecified, not intractable, without status epilepticus; B34.8 Other viral infections of unspecified site; Z79.4 Long term (current) use of insulin
CPT/HCPCS: 36415; 71045; 74177; 80048; 80053; 81001; 82009; 82330; 82803; 83036; 83605; 83690; 83735; 84100; 84132; 85025; 87040; 87150; 87633; 96361; 96374; 99285; 99406; A9270; G0480; J1650; J1815; Q9967; 81003; 82077; 82947; 87086; 87507

== ENCOUNTER 2024-04-11 15:11 | Outpatient (CLI) | payer MEDICARE, MEDICAID | END 2024-04-11 23:59 | disposition home or self-care (01) | LOC: EMS 15:11 | PROVIDERS: ATTEND Family Medicine | DX: R41.0 Disorientation, unspecified (principal); G30.9 Alzheimer's disease, unspecified; F02.80 Dementia in other diseases classified elsewhere, unspecified severity, without behavioral disturbance, psychotic disturbance, mood disturbance, and anxiety | CPT/HCPCS: A0425; A0428 ==